=== PATIENT | male | born 1990 | race Caucasian/White ===

== ENCOUNTER 2018-12-11 18:32 | Observation (INO) | payer OTHER ==
[~2018-12-11 18:32] MED LIST: ISOVUE-370 76%-LOCM 1 ML ONE
[2018-12-11 19:11] LABS: Hemoglobin 13.3 g/dL (14.0-18.0); Mean Corpuscular HGB CONC 34.4 g/dL (32.0-36.0); Mean Corpuscular Hemoglobin 31.4 pg (27.0-31.0); Mean Corpuscular Volume 91.2 fL (78.0-98.0); Mean Platelet Volume 7.9 fL (7.4-10.4); Platelet Count 271 thou/uL (130-400); RBC Distribution Width 11.2 % (11.5-14.5); Red Blood Cell (RBC) Count 4.22 mill/uL (4.70-6.10); White Blood Cell (WBC) Count 19.3 thou/uL (4.8-10.8)
[2018-12-11] MEDS ORDERED: Morphine 4 MG/ML VIAL ONE ×2 (19:26→21:23)
[2018-12-11] MEDS ORDERED: Piperacillin/Tazobactam 4.5 GM VIAL ONE (19:27)
[2018-12-11] MEDS ORDERED: Ondansetron PF 4 MG/2 ML Vial ONE (19:27)
[2018-12-11 19:34] LABS: ALT (SGPT) 22 U/L (8-55); AST (SGOT) 24 U/L (5-34); Albumin 4.9 g/dL (3.5-5.0); Alkaline Phosphatase 102 U/L (40-150); Anion Gap 12 mmol/L (10-20); BUN (Urea Nitrogen) 8 mg/dL (8.9-20.6); Bilirubin, Total 1.1 mg/dL (0.2-1.2); Calc. Creatinine Clearance 0 mL/min (70-130); Calcium 9.7 mg/dL (7.8-10.44); Carbon Dioxide 25 mmol/L (22-29); Chloride 100 mmol/L (98-107); Estimated GFR-MDRD Greater than 90; Globulin 2.9 g/dL (2.4-3.5); Glucose 74 mg/dL (70-105); Lipase 20 U/L (8-78); Potassium 3.8 mmol/L (3.5-5.1); Protein, Total 7.8 g/dL (6.0-8.3); Sodium 133 mmol/L (136-145)
--- NOTE | 2018-12-11 19:40 | CT ---
CT Abdomen Pelvis W Con: 12/11/2018 7:17 PM CLINICAL INFORMATION: Lower abdominal pain COMPARISON: None. TECHNIQUE: Multiple contiguous axial images were obtained and a CT of the abdomen and pelvis with IV contrast. C oronal and sagittal reformats were performed. FINDINGS: Lower Chest: within normal limits. Abdomen: Liver: within normal limits. Bile Ducts: Normal caliber. Gallbladder: No calcified gallstones. Normal caliber wall. Pancreas: within normal limits. Spleen: within normal limits. Adrenals: within normal limits. Kidneys: within normal limits. Pelvis: Reproductive Organs: No pelvic masses. Ureters: within normal limits. Bladder: within normal limits. Peritoneum: A trace amount of free fluid is seen in the pelvis. No free air is seen. Bowel: Normal caliber. The appendix is enlarged measuring 8 mm. The appendix is retrocecal in locatio n. Questionable stranding changes are seen adjacent to the appendix. Mesentery and Retroperitoneum: No enlarged mesenteric or retroperitoneal lymph nodes. Vessels: Normal. Abdominal Wall: within normal limits. Bones: Within normal limits IMPRESSION: Mild enlargement of the appendix could be secondary to early acute appendicitis. Correlate with point tenderness in the right lower quadrant of the abdomen.
[2018-12-11 19:48] LABS: Band 6 % (5-11); Lymphocytes 1 % (21-51); MDiff Complete? YES; Monocytes 9 % (0-10); Neutrophil 84 % (42-75); Platelet Morphology Comment Appears Adequate
--- NOTE | 2018-12-11 20:03 | ULT ---
EXAM: Testicular/scrotal ultrasound HISTORY: Right testicular pain and abdominal pain COMPARISON: None TECHNIQUE: Multiplanar grayscale and color Doppler images were obtained in a testicular/scrotal ultra sound. Spectral analysis of the Doppler waveforms of the testicles were performed. FINDINGS: Right testicle: Normal in echogenicity. No focal mass. Normal internal flow. Left testicle: Normal in echogenicity. No focal mass. Normal internal flow. Right epididymis. 3 mm epididymal cyst. Normal internal flow. Left epididymis. 4 mm epididymal cyst. Normal internal flow. No hydrocele is present. No varicocele is present. IMPRESSION: Tiny bilateral epididymal cysts; otherwise unremarkable exam.
[2018-12-11] MEDS ORDERED: Acetaminophen 1,000 MG in Premix Bag 1 BAG IVPB SCH (21:45)
[2018-12-11] MEDS ORDERED: Ondansetron PF 4 MG/2 ML Vial IVP PRN (21:58)
[2018-12-11] MEDS ORDERED: Ondansetron ODT 4 MG TAB SL PRN (21:58)
[2018-12-11] MEDS: Lactated Ringer's 1,000 ML IV SCH (22:17)
[2018-12-11 22:40] VITALS: BMI 27.8
[2018-12-12] MEDS: Piperacillin/Tazobactam 4.5 GM in Sodium Chloride 0.9% 100 ML IVPB SCH ×2 (02:07→07:50)
[2018-12-12] MEDS: Morphine 4 MG/ML VIAL SLOW IVP PRN ×2 (02:08→06:39)
[2018-12-12] MEDS: Lactated Ringer's 1,000 ML IV SCH ×2 (05:29→06:40)
[2018-12-12] MEDS ORDERED: cefOXitin 2 GM in Sodium Chloride 0.9% 100 ML IVPB SCH (07:15)
--- NOTE | 2018-12-12 07:45 | HP ---
CHIEF COMPLAINT: Right lower quadrant abdominal pain. HISTORY OF PRESENT ILLNESS: The patient is a 28-year-old male, with a 24-hour history of mid abdominal pain which is now localized to the right lower quadrant associated with nausea, no vomiting, some subjective fevers. PAST MEDICAL HISTORY: Otherwise healthy. PAST SURGERIES: Right inguinal hernia repair 2 years ago. MEDICATIONS: Vyvanse and lisinopril. ALLERGIES: HE HAS NO KNOWN DRUG ALLERGIES. SOCIAL HISTORY: He works for [employer]. He vapes an occasional cigarette. Occasional alcohol. FAMILY HISTORY: Diverticular disease and appendicitis. PHYSICAL EXAMINATION: VITAL SIGNS: Temperature 98.1, pulse 57, blood pressure 107/54. GENERAL: Healthy-appearing male, in minimal distress. HEENT: Unremarkable. LUNGS: Clear. HEART: Regular rate and rhythm. ABDOMEN: Soft. Percussion tender in the right lower quadrant. LABORATORY DATA: White count 19,000, H and H are 13 and 38, platelet count 271. Electrolytes are fine. CT scan shows acute appendicitis. ASSESSMENT: Acute appendicitis. PLAN: Laparoscopic appendectomy. CONSENT: I have discussed the planned procedure as well as risk of bleeding, infection, injury to bowel, bladder, need to open. He understands and gives informed consent. Job ID: [id number]
[2018-12-12] MEDS ORDERED: Bupivacaine/Epinephrine 0.25% 30 ML VIAL ONE (10:32)
[2018-12-12] MEDS ORDERED: Fentanyl 100 MCG/2 ML VIAL ONE (10:36)
[2018-12-12] MEDS ORDERED: cefOXitin 2 GM VIAL ONE (10:40)
[2018-12-12] MEDS ORDERED: Sodium Chloride 0.9% 0 ML ONE (10:41)
[2018-12-12] MEDS ORDERED: Lidocaine 2% Jelly 5 ML TUBE ONE (10:43)
[2018-12-12] MEDS ORDERED: hydrALAZINE 20 MG/ML VIAL SLOW IVP PRN (11:42)
[2018-12-12] MEDS ORDERED: Promethazine HCl 25 MG/ML VIAL IM PRN ×2 (11:42→11:54)
[2018-12-12] MEDS ORDERED: Morphine 2 MG/ML SYRINGE SLOW IVP PRN (11:42)
[2018-12-12] MEDS ORDERED: HYDROcodone/Acetaminophen 10/325 mg Tablet PO PRN ×2 (11:42)
[2018-12-12] MEDS ORDERED: Dextrose 5% in Water 1,000 ML IV PRN (11:42)
[2018-12-12] MEDS ORDERED: Dextrose 50% Abboject 50 ML SYRINGE SLOW IVP PRN (11:42)
[2018-12-12] MEDS ORDERED: Ondansetron PF 4 MG/2 ML Vial IVP PRN (11:42)
[2018-12-12] MEDS ORDERED: Morphine 4 MG/ML VIAL SLOW IVP PRN (11:42)
[2018-12-12] MEDS ORDERED: D5 1/2 NS w/20 mEq KCL 1,000 ML IV SCH (11:45)
[2018-12-12] MEDS ORDERED: Promethazine HCl 25 MG/ML VIAL SLOW IVP PRN (11:54)
[2018-12-12] MEDS ORDERED: Ondansetron HCl/PF 4 MG/2 ML Vial IVP PRN (11:54)
[2018-12-12] MEDS ORDERED: Piperacillin/Tazobactam 3.375 GM in Sodium Chloride 0.9% 100 ML IVPB SCH (12:00)
[2018-12-12] MEDS ORDERED: Ketorolac Tromethamine 30 MG/ML VIAL IVP SCH (12:00)
[2018-12-12] MEDS ORDERED: Morphine 4 MG/ML VIAL ONE (12:15)
--- NOTE | 2018-12-12 13:46 | OP ---
DATE OF PROCEDURE: 12/12/2018 PREOPERATIVE DIAGNOSIS: Acute appendicitis. PROCEDURE PERFORMED: Laparoscopic appendectomy. INDICATIONS: A 28-year-old male, with a 24-hour history of right lower quadrant pain associated with nausea, leukocytosis and a CT scan showing appendicitis. FINDINGS: Acute gangrenous appendicitis. DESCRIPTION OF PROCEDURE: After informed consent was obtained, the patient was taken to the operating room and given general endotracheal anesthesia and placed in the supine position. Abdomen was prepped and draped in usual fashion. Local anesthesia was infiltrated subcutaneously and deep and a subumbilical incision was performed. Subcu divided sharply. The fascia was grasped with 2 stay sutures of 0 Vicryl placed in each side of midline. Midline incised. Digital palpation revealed no local adhesions. A blunt 12-mm trocar inserted. Pneumoperitoneum was created to a pressure of 15 mmHg. A 0-degree laparoscope inserted under direct vision, two 5-mm ports were placed, one suprapubic, one right lateral abdomen. The appendix was found. The mesoappendix was divided with the LigaSure. The base of the appendix divided with a linear 45 mm white load stapler. The appendix was placed in an endosac and removed from the abdomen in the endosac. Hemostasis was assured. The abdomen was irrigated. Irrigation fluid removed. Trocars and retractors were removed. The fascia was closed with interrupted 0 Vicryl suture. The skin was closed with interrupted 4-0 Rapide. Dermabond applied. The patient tolerated the procedure well, transferred to Recovery in good condition. Sponge and needle count verified correct x2. Job ID: [id number]
[2018-12-12] MEDS ORDERED: PHENYLEPHRINE-NS 100 MCG/ML 10 ML SYRINGE ONE (13:50)
[2018-12-12] MEDS ORDERED: Lidocaine 1% PF 5 ML VIAL ONE (13:50)
[2018-12-12] MEDS ORDERED: Rocuronium Bromide 10 MG/ML (10ML VIAL) ONE (13:50)
[2018-12-12] MEDS ORDERED: Dexamethasone 20 MG/5 ML VIAL ONE (13:50)
[2018-12-12] MEDS ORDERED: PROPOFOL 200 MG/20 ML VIAL ONE (13:50)
[2018-12-12] MEDS ORDERED: Ondansetron PF 4 MG/2 ML Vial ONE (13:50)
[2018-12-12] MEDS ORDERED: Succinylcholine Chloride 20 MG/ML 10 ml SYRINGE FS ONE (13:50)
[2018-12-12] MEDS ORDERED: ePHEDrine 50 MG/ML VIAL ONE (13:50)
[2018-12-12] MEDS ORDERED: Ketorolac Tromethamine 30 MG/ML VIAL ONE (13:50)
[2018-12-12 14:21] VITALS: BP 115/71; TEMP 98.1
[2018-12-12] MEDS ORDERED: Famotidine/PF 20 mg/2ml Vial SLOW IVP SCH (21:00)
[2018-12-12] MEDS ORDERED: Famotidine 20 MG TAB PO SCH (21:00)
--- NOTE | 2018-12-13 04:03 | DIS ---
DATE OF ADMISSION: 12/11/2018 DATE OF DISCHARGE: 12/12/2018 DISCHARGE DIAGNOSIS: Acute gangrenous appendicitis. PROCEDURE DURING ADMISSION: Laparoscopic appendectomy. HOSPITAL COURSE: The patient was admitted, taken to the operating room, where he underwent laparoscopic appendectomy. He was found to have a gangrenous appendix. He is doing well. He is tolerating liquids well. Pain is controlled on p.o. medications. He is discharged home on hydrocodone, Zofran, and doxycycline. He will follow up with me in 2 weeks. Job ID: [id number]
[2018-12-13] MEDS ORDERED: Enoxaparin Sodium 40 MG/0.4 ML SYRINGE SC SCH (09:00)
== END 2018-12-12 15:36 | disposition home or self-care (01) ==
LOC: ERS 18:32 → T4-B 20:38
PROVIDERS: ADMIT Surgery; ATTEND Surgery
PROC: 0DTJ4ZZ Resection of Appendix, Percutaneous Endoscopic Approach (ICD-10-PCS; principal; 2018-12-12)
DX: K35.80 Unspecified acute appendicitis (principal); F17.290 Nicotine dependence, other tobacco product, uncomplicated; I10 Essential (primary) hypertension; Z79.899 Other long term (current) drug therapy
CPT/HCPCS: 74177; 76870; 80053; 83690; 85025; 88304; 93976; 96361; 96365; 96375; 96376; G0378; J0131; J0694; J1100; J1885; J2001; J2270; J2405; J2543; J2704; J3010; J3490; Q9966